=== PATIENT | female | born 1950 | race Caucasian/White ===

== ENCOUNTER → 2018-06-04 14:54 | Outpatient (CLI) | payer MEDICARE ==
[2016-09-06 12:15] VITALS: BMI 35.5
[~2018-06-04 14:54] MED LIST: CYCLOBENZAPRINE10 MG PO; HYDROCODONE-APA1 TAB PO; LOPRESSOR25 MG PO; NEXIUM40 MG PO; NORCO 7.5/325 T1 TA1 PO
== END | disposition home or self-care (01) ==
LOC: D.MRI 14:54
DX: M54.5 Low back pain (principal)